=== PATIENT | female | born 1995 | race Caucasian/White ===

== ENCOUNTER 2020-01-17 19:40 | Emergency (ER) | payer OTHER ==
[~2020-01-17] VITALS: Ht 170.2 cm; Wt 70.8 kg
[2020-01-17] MEDS ORDERED: OBSTETRIX DHA1 EACH (20:11)
== END 2020-01-18 00:21 | disposition home or self-care (01) ==
LOC: ER 19:40
DX: O46.8X1 Other antepartum hemorrhage, first trimester (principal)

== ENCOUNTER 2020-01-18 17:50 | Emergency (ER) | payer OTHER ==
[~2020-01-18] VITALS: Ht 162.6 cm; Wt 68.0 kg
[~2020-01-18 17:50] MED LIST: OBSTETRIX DHA1 EACH
== END 2020-01-18 19:40 | disposition home or self-care (01) ==
LOC: ER 17:50
DX: O02.1 Missed abortion (principal)